=== PATIENT | female | born 1945 | race Hispanic/Latino ===

== ENCOUNTER → 2018-08-05 | Outpatient (CLI) | payer MEDICARE | END | disposition home or self-care (01) | LOC: OIH 09:20 | PROVIDERS: ATTEND Family Medicine | DX: S22.41XA Multiple fractures of ribs, right side, initial encounter for closed fracture (principal); X58.XXXA Exposure to other specified factors, initial encounter; Y93.89 Activity, other specified; Y92.89 Other specified places as the place of occurrence of the external cause; Y99.8 Other external cause status | CPT/HCPCS: 71100 ==

== ENCOUNTER → 2018-09-17 | Outpatient (CLI) | payer MEDICARE | END | disposition home or self-care (01) | LOC: OIH 10:00 | PROVIDERS: ATTEND Family Medicine | DX: S22.41XA Multiple fractures of ribs, right side, initial encounter for closed fracture (principal); X58.XXXA Exposure to other specified factors, initial encounter; Y93.89 Activity, other specified; Y92.89 Other specified places as the place of occurrence of the external cause; Y99.8 Other external cause status | CPT/HCPCS: 71100 ==

== ENCOUNTER 2023-03-17 07:16 | Day surgery (SDC) | payer OTHER, MEDICARE ==
[2023-03-12 10:20] LABS: BASOPHILS # (AUTO) 0.05 K/uL (0.00-0.20); BASOPHILS % (AUTO) 0.8 % (0.0-5.0); EOSINOPHILS # (AUTO) 0.18 K/uL (0.00-0.70); EOSINOPHILS % (AUTO) 2.8 % (0.0-8.0); HEMATOCRIT 36.6 % (36-48); IMMATURE GRANULOCYTE ABSOLUTE 0.02 K/uL (0-1); LYMPHOCYTES # (AUTO) 2.5 K/uL (1.0-4.8); LYMPHOCYTES % (AUTO) 38.8 % (21.0-51.0); MEAN CORPUSCULAR HEMOGLOBIN 31.2 pg (27.0-33.0); MEAN CORPUSCULAR HGB CONC 32.8 g/dL (32.0-36.0); MEAN CORPUSCULAR VOLUME 95.1 fL (79-99); MONOCYTES # (AUTO) 0.6 K/uL (0.1-1.0); MONOCYTES % (AUTO) 9.8 % (3.0-13.0); NEUTROPHILS % (AUTO) 47.5 % (40.0-77.0); PLATELET COUNT (AUTO) 149 K/uL (130-400); RED BLOOD CELL COUNT(AUTO) 3.85 MIL/uL (4.00-5.50); RED CELL DISTRIBUTION WIDTH 14.5 % (11.0-15.5); WHITE BLOOD COUNT (AUTO) 6.3 K/uL (4.8-10.8)
[2023-03-12 10:29] LABS: INR 0.94 (0.85-1.15); PROTHROMBIN TIME 10.9 SEC (9.6-11.6)
[2023-03-12 10:30] LABS: CREATININE 5.4 mg/dL (0.5-1.5); PARTIAL THROMBOPLASTIN TIME 31.4 SEC (26.3-35.5); POTASSIUM 4.8 mmol/L (3.5-5.1)
[2023-03-12 14:02] VITALS: BP 164/79; PULSE 63; RESP 17
[2023-03-17] VITALS (18 sets, daily range): BP systolic 111–165; BP diastolic 43–60; PULSE 59–61; RESP 12–20
[~2023-03-17] VITALS: Ht 160 cm; Wt 66.7 kg
[~2023-03-17 07:16] MED LIST: AMLO-258 PO; BISO5TAB19 PO; LEVO50CA4 PO; ROSU10TA28 PO; SERT-438 PO; SEVE800T7 PO; SODPOLY15G PO; VITAMIN D2 PO
[2023-03-17] MEDS ORDERED: 0.9% NACL 500ML IV.SOLN 500 ML IV ONE (07:53)
[2023-03-17] MEDS ORDERED: CEFAZOLIN SODIUM 2 GM VIAL ONE (07:53)
[2023-03-17 08:21] LABS: CREATININE 5.7 mg/dL (0.5-1.5); POTASSIUM 4.3 mmol/L (3.5-5.1)
[2023-03-17] MEDS ORDERED: FAMOTIDINE 20MG VIAL IV ONE (12:17)
[2023-03-17] MEDS ORDERED: LIDOCAINE PF 100MG/5ML (2%) SYRINGE 5ML ONE (12:20)
[2023-03-17] MEDS ORDERED: GLYCOPYRROLATE 1 MG/5 ML SYRINGE ONE (12:20)
[2023-03-17] MEDS ORDERED: FENTANYL CITRATE PF 50 MCG/1 ML 2ML VIAL ONE (12:20)
[2023-03-17] MEDS ORDERED: PROPOFOL 10 MG/ML 20ML VIAL IV ONE (12:20)
[2023-03-17] MEDS ORDERED: ROCURONIUM 10MG/1ML SYR 10 MG/ML ML ONE (12:20)
[2023-03-17] MEDS ORDERED: CEFAZOLIN SODIUM 2 GM VIAL IVPB ONE (12:48)
[2023-03-17] MEDS ORDERED: HEPARIN 10,000 UNIT/10ML (1,000 UNIT/ML) VIAL ONE (13:03)
[2023-03-17] MEDS ORDERED: ONDANSETRON 4MG INJ ONE (13:03)
[2023-03-17] MEDS ORDERED: PROTAMINE SULFATE 10 MG/ML 5 ML VIAL ONE (13:03)
[2023-03-17] MEDS ORDERED: NEOSTIGMINE 5MG/5ML SYR IV ONE (13:17)
== END 2023-03-17 15:30 | disposition home or self-care (01) ==
LOC: DAH 07:16
PROVIDERS: ATTEND Student in an Organized Health Care Education/Training Program
DX: E11.22 Type 2 diabetes mellitus with diabetic chronic kidney disease (principal); I12.0 Hypertensive chronic kidney disease with stage 5 chronic kidney disease or end stage renal disease; Z20.822 Contact with and (suspected) exposure to COVID-19; N18.6 End stage renal disease; E78.5 Hyperlipidemia, unspecified; Z86.73 Personal history of transient ischemic attack (TIA), and cerebral infarction without residual deficits; Z99.2 Dependence on renal dialysis; Z79.899 Other long term (current) drug therapy; Z98.890 Other specified postprocedural states
CPT/HCPCS: 80048 ×2; 85025; 85730; 85610; 86850 ×2; 86900 ×2; 86901 ×2; 36415 ×2; 93005; 36821; 82948 ×2; A4663; J7030; J7040; J3490 ×2; J3010; J2710; J2001; J1644 ×2; J2704; J2405; J0690 ×2; G0168; A4649 ×3; C1713 ×2; A4215; A4223; A4222; A4221; J2720